=== PATIENT | male | born 1995 | race Caucasian/White ===

== ENCOUNTER 2024-05-05 09:15 | Emergency (ER) | payer BC, SELFPAY ==
[2024-05-05] VITALS (15 sets, daily range): BP systolic 120–161; BP diastolic 77–118; BMI 27.8
[2024-05-05 10:08] LABS: % Basophils 0.8 % (0-2); % Eosinophils 1.1 % (0-6); % Immature Granulocytes 0.3 % (0-0.5); % Lymphocytes 31.4 % (20.5-51.1); % Monocytes 9.9 % (1.7-9.3); % Neutrophils 56.5 % (42.2-75.2); Absolute Basophils 0.1 10^3/uL (0-0.2); Absolute Eosinophils 0.1 10^3/uL (0-0.7); Absolute Lymphocytes 2.9 10^3/uL (1.2-3.4); Absolute Monocytes 0.9 10^3/uL (0.1-0.6); Absolute Neutrophils 5.1 10^3/uL (1.4-6.5); Hematocrit 46.4 % (39.0-52.0); Hemoglobin 16.3 g/dL (13.0-18.0); Mean Corp Hgb Conc. 35.1 g/dL (33.0-37.0); Mean Corpuscular Hgb 27.8 pg (27.0-31.0); Mean Corpuscular Volume 79.2 fL (80.0-94.0); Mean Platelet Volume 8.7 fL (7.4-10.4); Nucleated Red Blood Cells % 0 % (-); Platelet Count 296 10^3/uL (130-400); Red Blood Cell Count 5.86 10^6/uL (4.70-6.10); Red Cell Dist. Width 13.5 % (11.5-14.5); White Blood Cell Count 9.1 10^3/uL (4.8-10.8)
--- NOTE | 2024-05-05 10:13 | ED.GENMED ---
History of Present Illness
General
Chief Complaint: Heart Rate Problem
Time Seen by Provider: 05/05/24 09:37
History of Present Illness
History of Present Illness:
28 male with history of A-fib on 120 milligrams of ER diltiazem daily presenting to the emergency department for concern of A-fib. Reports about 2 years ago he had an episode of A-fib, is from [facility] and had been following with
cardiology there. Recently moved to this area. He is not on any anticoagulation. About 30 minutes prior to arrival, he felt himself going to atrial fibrillation. Denies associated chest pain or difficulty breathing. Denies fever, nausea,
vomiting, abdominal pain. Denies known family history of cardiac disease. Reports that he had a workup by cardiology, unclear etiology of his A-fib. Denies extensive caffeine use or supplement use. Denies additional acute medical complaints.
Phy Exam
Physical Exam
Physical Exam:
General: Well-appearing, no clinical signs of dehydration, nontoxic and in no acute distress
HEENT: protecting airway
Neck: appears supple
CV: Irregularly irregular rhythm, tachycardic, no evidence of cyanosis
Resp: No accessory muscle use, no increased work of breathing, lungs clear to auscultation bilaterally
Abd: Soft and non-distended, no tenderness to palpation
Extremities: No deformities, no swelling, no erythema
Neuro: alert, no focal neurologic deficit
: deferred
Rectal: deferred
Psych: Normal affect
Skin: Intact
Scores
[id number] Score for Afib Stroke Risk
Age in Years (65=0, 65-74=1, >/=75=2): <65
Sex (Female=+1): Male
Congestive Heart Failure History (Yes=+1): No
Hypertension History (Yes=+1): No
Stroke/TIA/Thromboembolism History (Yes=+2): No
Vascular Disease History (Yes=+1): No
Diabetes Mellitus (Yes=+1): No
Score: 0
Anticoagulation Recommendations: Anticoagulation not indicated (as validated in nonvalvular afib). Consider anticoagulation irrespective of score in patients with HCM
Course
Orders/Labs/Results
Orders:
Orders
05/05/24 09:16
ECG [Electrocardiogram (*1)] Urgent
Reason for Study: Chest Pain
05/05/24 09:17
EKG- Treatment ONCE
05/05/24 09:50
Complete Blood Count/With Diff Urgent
05/05/24 10:07
Diltiazem HCl [Cardizem] 20 mg IV NOW STA
05/05/24 11:33
Propofol [Diprivan] 20 ml .ROUTE .STK-MED
05/05/24 11:51
EKG [Electrocardiogram (*1)] Urgent
Reason for Study: Abnormal EKG
EKG- Treatment ONCE
Abnormal Lab Results
05/05/24
09:50
MCV 79.2 L fL
(80.0-94.0)
Absolute Monos (auto) 0.9 H 10^3/uL
(0.1-0.6)
Monocytes % 9.9 H %
(1.7-9.3)
05/05/24 09:50
05/05/24 10:39
Vital Signs
Initial and Last Documented VS:
Initial Vital Signs
Temp Pulse Resp BP Pulse Ox
100.0 F 122 20 161/118 97
05/05/24 09:26 05/05/24 09:26 05/05/24 09:26 05/05/24 09:26 05/05/24 09:26
Last Documented Vital Signs
Temp Pulse Resp BP Pulse Ox
98.6 F 87 15 130/85 95
05/05/24 12:15 05/05/24 12:15 05/05/24 12:15 05/05/24 12:15 05/05/24 12:15
Procedures
Cardioversion
Indication:: Afib
Performed by:: Asya Pagan DO
Synchronized?: Yes
Energy Used: 200 joules
Number of attempts: 1
Successful?: Yes
Complications: none
ASA Risk Score: Class I
Any reaction or bad outcome to prior sedation/anesthesia?: No history of a reaction
Sedation level to be attained: moderate
Chart and allergies reviewed: Yes
Patient reassessed prior to sedation: Yes
Time out completed at (validating right patient & procedure): 11:44
History of difficult intubation: No
Airway free of obstruction: Yes
Patient has a gag reflex: Yes
Patient is able to open mouth: Yes
Patient has no dentures: Yes
Patient has no loose teeth: Yes
Medication administered by Provider during Moderate Sedation: IV Propofol (mg)
Total dose administered: 150
Time drug administered: 11:45
Start Time: 11:45
Stop Time: 12:05
MDM/Problems Addressed
MDM/Problems Addressed:
28-year-old male with prior history of A-fib presenting for concern of atrial fibrillation. Vital signs on arrival significant for tachycardia and hypertension.
On exam patient is resting comfortably, no acute distress or discomfort. EKG obtained, consistent with A-fib with RVR. Patient reports that he felt himself going to A-fib 30 minutes prior to arrival. Notes that he is usually in sinus rhythm.
Reports that about 2 years ago he did have to be cardioverted. Given that patient felt himself go into A-fib, would be a candidate for cardioversion. Will try 1 dose of diltiazem and proceed with cardioversion if necessary. Will discuss with
cardiology. Will screen with laboratory analysis as well.
11:15 -patient's labs are unremarkable. Patient remains in A-fib despite diltiazem. Did discuss with cardiology on-call, agree with cardioversion. Also recommending 1 month of Eliquis status post cardioversion with close outpatient follow-up with
cardiology, as well as continuation of diltiazem. Patient consented for procedure.
12:10 -successful cardioversion, now sinus rhythm. No complications. Continue to monitor until stable off sedation. Plan for outpatient follow-up, will increase diltiazem twice daily dosing, and start Eliquis.
*EKG
Interpreted by ED Provider?: Yes
EKG Intrepretation Date: 05/05/24
EKG Intrepretation Time: 10:23
Interpretation: abnormal
Comparison EKG: no comparison EKG present
Heart Rate: 141
Rate: tachycardiac
Rhythm: a-fib
[place]: normal axis
QRS Pattern: normal QRS
Ischemia: no ischemia
*Critical Care Note
Total Time (30-74mins, 75-104mins- exclusive of procedures): Not Applicable
ED Attending Note
-
Portions of this chart may have been created with voice recognition software.� Occasional wrong word or��sound alike� substitutions may have occurred due to the inherent limitations of voice recognition software.
Discharge Plan
Departure
Referrals:
Moy Cruz MD [Active] - (The office will call to arrange. )
NONE,* [Family Provider] -
Interventions
Interventions:
*Risk Screen - Suicide Last Done: 05/05/24 09:56
*General Assessment Last Done: 05/05/24 09:56
*Neglect/Abuse Screening Last Done: 05/05/24 09:56
ED- Cardiac Assessment Last Done: 05/05/24 09:56
ED- Pulmonary Assessment Last Done: 05/05/24 09:56
Discharge Date and Time
Print Language: [place]
[2024-05-05] MEDS: CARDIZEM 20 MG IV (10:38)
[2024-05-05 13:09] LABS: Glucose 110 mg/dl (70-99)
[2024-05-05 13:10] LABS: Blood Urea Nitrogen 15 mg/dl (9-20); Estimated Creatinine Clearance > 125 ml/min; Sodium 136 mmol/L (135-145); eGFR > 60.00
[2024-05-05 13:11] LABS: Calcium 9.6 mg/dl (8.4-10.2); Carbon Dioxide 21 mmol/L (22-30); Chloride 104 mmol/L (98-107)
== END 2024-05-05 13:41 | disposition home or self-care (01) ==
LOC: EMR 09:15
PROVIDERS: EMERGENCY PHYSICIAN Student in an Organized Health Care Education/Training Program
DX: I48.91 Unspecified atrial fibrillation (principal)
CPT/HCPCS: 92960; 99285; 99152; 80048; 85025; 93005